=== PATIENT | female | born 1940 | race Two or more races ===

== ENCOUNTER → 2024-09-07 | Outpatient (CLI) | payer MEDICARE, MEDICAID, SELFPAY ==
--- NOTE | 2024-09-07 11:50 | XR_ITS ---
Examination: Lumbar spine 3 views TECHNIQUE: AP, lateral, coned lateral lower lumbar spine 3 views Date and time: September 07, 2024 1307 hours INDICATIONS: Onset back pain beginning 2 weeks ago. FINDINGS: Adequate alignment lumbar vertebral bodies on the lateral view Diffuse moderate to advanced lumbar degenerative disc disease, most prominent L2-L3, L4-L5, L5-S1 with spinal stenosis IMPRESSION: Diffuse lumbar degenerative disc disease, advanced L2-L3, L4-L5, L5-S1 with spinal stenosis
== END | disposition home or self-care (01) ==
LOC: SDIM 11:34
PROVIDERS: PCP Nurse Practitioner Family; Referring Provider Nurse Practitioner Family; Visit Provider Nurse Practitioner Family
DX: M51.360 Other intervertebral disc degeneration, lumbar region with discogenic back pain only (principal); M48.061 Spinal stenosis, lumbar region without neurogenic claudication; M51.370 Other intervertebral disc degeneration, lumbosacral region with discogenic back pain only; M48.07 Spinal stenosis, lumbosacral region
CPT/HCPCS: 72100

== ENCOUNTER → 2024-11-24 | Outpatient (CLI) | payer MEDICARE, MEDICAID, SELFPAY ==
--- NOTE | 2024-11-24 11:56 | XR_ITS ---
Examination: Shoulder,right, 3 views Technique: Shoulder AP internal rotation, AP external rotation, Y view shoulder, 3 views Exam date and time :November 24, 2024 1202 hours INDICATIONS: Patient fell 3 months ago with into the shoulder, shoulder pain. FINDINGS: Moderate right shoulder osteoarthritis No shoulder fracture or dislocation No AC joint separation IMPRESSION: No shoulder fracture or dislocation
== END | disposition home or self-care (01) ==
PROVIDERS: PCP Nurse Practitioner Family; Referring Provider Nurse Practitioner Family; Visit Provider Nurse Practitioner Family
DX: M25.511 Pain in right shoulder (principal); S49.91XS Unspecified injury of right shoulder and upper arm, sequela; W19.XXXS Unspecified fall, sequela
CPT/HCPCS: 73030